=== PATIENT | female | born 1955 | race Caucasian/White ===

== ENCOUNTER 2020-09-15 13:41 | Emergency (ER) | payer MEDICARE, OTHER ==
[~2020-09-15] VITALS: Ht 170.2 cm; Wt 66.2 kg
[~2020-09-15 13:41] MED LIST: ADVIL200 MG PO; AMBIEN10 MG PO; ESTRADIOL1 MG PO; NORCO 5-325 TA1 EACH PO; SEPTRA DS TABL1 EACH PO; VIACTIV MULTI-1 EACH PO; [UNRECOGNIZED DRUG - OTHER]
[2020-09-15] MEDS ORDERED: LISINOPRIL-HCT1 EACH PO (14:03)
[2020-09-15] MEDS ORDERED: FISH OIL 1,0001 EAC2 NG (14:05)
--- NOTE | 2020-09-16 09:09 | EKG ---
[facility] [address] [facility] [place] [address] Signed Sinus bradycardia Incomplete right bundle branch block Left anterior fascicular block Abnormal ECG No previous ECGs available Confirmed by HANY WRAY MD ([id number]) on 09/16/2020 9:09:03 AM Electronically Signed By: HANY WRAY MD 09/16/20908 PATIENT NAME: DEISYBRAD Electrocardiogram DATE OF : 55 PHYSICIAN: HANY WRAY MD REPORT #: [id number] REPORT IS CONFIDENTIAL AND NOT TO BE RELEASED WITHOUT AUTHORIZATION
== END 2020-09-15 16:55 | disposition home or self-care (01) ==
LOC: ED 13:41
DX: R55 Syncope and collapse (principal); I10 Essential (primary) hypertension; Z88.8 Allergy status to other drugs, medicaments and biological substances; Z79.899 Other long term (current) drug therapy
CPT/HCPCS: 80053; 84484; 85025; 93005; 93010; 96361; 96374; 99284-25; J2405; J7030

== ENCOUNTER 2024-09-03 11:01 | Emergency (ER) | payer OTHER, MEDICARE ==
[~2024-09-03] VITALS: Ht 170.2 cm; Wt 75.8 kg
[~2024-09-03 11:01] MED LIST changes: +FISH OIL 1,0001 EAC2 NG; +LISINOPRIL-HCT1 EACH PO
[2024-09-03] MEDS ORDERED: ACETAMINOPHEN 500 MG TAB PO ONE (16:15)
[2024-09-03 16:17] VITALS: BP 129/72
== END 2024-09-03 16:28 | disposition home or self-care (01) ==
LOC: ED 11:01
DX: S00.83XA Contusion of other part of head, initial encounter (principal); S60.512A Abrasion of left hand, initial encounter; S60.511A Abrasion of right hand, initial encounter; S50.312A Abrasion of left elbow, initial encounter; S50.311A Abrasion of right elbow, initial encounter; S80.212A Abrasion, left knee, initial encounter; S80.211A Abrasion, right knee, initial encounter; I10 Essential (primary) hypertension; Z90.89 Acquired absence of other organs; Z90.711 Acquired absence of uterus with remaining cervical stump; Z79.899 Other long term (current) drug therapy; Z91.040 Latex allergy status; Z88.8 Allergy status to other drugs, medicaments and biological substances; W07.XXXA Fall from chair, initial encounter
CPT/HCPCS: 70450; 99283-25; A9270